=== PATIENT | female | born 1945 | race Caucasian/White ===

== ENCOUNTER 2016-03-31 12:40 | Emergency (ER) | payer MEDICARE ==
--- NOTE | 2016-03-31 14:24 | ERRECORD ---
[facility] EMERGENCY RECORD PAST MEDICAL HISTORY (13:34 SEC) MEDICAL HISTORY: Past medical history includes neurological disease, STROKE 2015, Past medical history includes gastrointestinal disease, gastroesophageal reflux disease, Past medical history includes history of hypertension, which has been treated. FEMALE SURGICAL HISTORY: Surgical history of hysterectomy, Surgical history of tonsillectomy. PSYCHIATRIC HISTORY: No previous psychiatric history. SOCIAL HISTORY: Patient denies alcohol use, Patient denies drug use, Patient has no smoking history, Patient denies alcohol use, Patient denies drug use, Patient has no smoking history, Patient has no smoking history, Patient drinks socially, twice a month, Patient denies drug use. KNOWN ALLERGIES No Known Drug Allergies CURRENT MEDICATIONS CeleXA: TABLET : Strength - 10 mg : ORAL Patient Dose: 20 mg once a day. (13:35 SEC) amLODIPine: TABLET : Strength - 10 mg : ORAL Patient Dose: once a day. (13:36 SEC) aspirin: TABLET : Strength - 81 mg : ORAL Patient Dose: once a day. (13:36 SEC) simvastatin: TABLET : Strength - 20 mg : ORAL Patient Dose: once a day. (13:36 SEC) Co Q-10: CAPSULE : Strength - 100 mg : ORAL Patient Dose: once a day. (13:37 SEC) Xanax: TABLET : Strength - 0.25 mg : ORAL Patient Dose: once a day (at bedtime). (13:37 SEC) Zanaflex: CAPSULE : Strength - 2 mg : ORAL Patient Dose: once a day. (13:37 SEC) VITAL SIGNS VITAL SIGNS: BP: 142/75, Pulse: 72, Resp: 18, O2 sat: 97 on Room Air, Time: 03/31/2016 12:51. (12:51 SEC) Temp: 97.5 (Oral), Pain: 5, Time: 03/31/2016 12:55. (12:55 SEC) BP: 137/82, Pulse: 83, Resp: 18, O2 sat: 98 on Room Air, Time: 03/31/2016 13:34. (13:34 SEC) RADIOLOGYINTERPRETATION (14:03 MBRI) BACK: Lumbar spine films negative, no fracture, no subluxation, &a-1R&a+25V*p+0X*[id number]*c202B*c15G*c2P*p-0X&a-25V&a+1R Name: Jane Solomon : 1945 F70 MedRec: [id number] AcctNum: [id number] Prepared: Rosa Mar 31, 2016 14:19 by Interface Page 1 of 2 pMD [facility] EMERGENCY RECORD no spondylolisthesis, convex left lumbar scoliosis. No frx or spondylolisthesis noted. MAJOR GIFTS DIRECTOR: Preliminary review of x-rays by, ED Physician. PROBLEM LIST No recorded problems DIAGNOSIS (14:04 MBRI) FINAL: PRIMARY: LOW BACK PAIN. DISPOSITION PATIENT: Disposition Type: Discharge, Disposition: *Discharge Home, Condition: Fair. (14:04 MBRI) Patient left the department. (14:14 LGIB) Pat: LGIB=LANG Sanchez, Sil MBRI=DO Jimenez Matthew SEC=LANG Garrett, Mariluz &a-1R&a+25V*p+0X*[id number]*c202B*c15G*c2P*p-0X&a-25V&a+1R Name: Jane Solomon : 1945 F70 MedRec: [id number] AcctNum: [id number] Prepared: Rosa Mar 31, 2016 14:19 by Interface Page 2 of 2 pMD MTDD
--- NOTE | 2016-03-31 14:32 | PICIS ---
[facility] EMERGENCY RECORD TRIAGE (FriMar 31, 2016 12:52 KMOR) TRIAGE NOTES: Fell last Friday on to back, no LOC, still having pain. (FriMar 31, 2016 12:52 KMOR) PATIENT: NAME: Jane Solomon, AGE: 70, GENDER: female, : Fri1945, TIME OF GREET: FriMar 31, 2016 12:41, PREFERRED LANGUAGE: Chinese, ETHNICITY: Not or , ECODE BILLING MAP: [facility], SSN: [id number], Zip Code: [address], KG WEIGHT: 61.23, PHONE: , , , PERSON ID: [id number], PAYMENT: [employer], PCP: DO ROSAS JOHN SCOTT. (FriMar 31, 2016 12:52 KMOR) COMPLAINT: FALL. (FriMar 31, 2016 12:52 KMOR) ADMISSION: URGENCY: 4 Non Urgent, ADMISSION SOURCE: Home, TRANSPORT: CAR, BED: ER -03. (FriMar 31, 2016 12:52 KMOR) ASSESSMENT: Assessment: PT REPORTS BEING OFF BALANCE, TRIP & FALL 3 DAYS AGO; HERE FOR LOWER BACK PAIN, Symptoms began 3 DAYS. (13:34 SEC) PAIN: Patient complains of pain described as, aching, on a scale 0-10 patient rates pain as 5, Location LOWER BACK. (13:34 SEC) IMMUNIZATIONS: Flu vaccine up to date, Tetanus not up to date, Pneumococcal vaccine up to date. (13:34 SEC) SIRS SCORING: Heart Rate 55-109 (0), Temp range 96.8-101.1 (0), respiratory rate 12-24 (0), Mental Status altered: no (0), Infection or Suspected Infection: No. (13:34 SEC) TRIAGE SCREENING: Patient denies suicidal ideation, Patient denies presence of domestic violence. (13:34 SEC) PROVIDERS: TRIAGE NURSE: Jailyn Quintero RN. (FriMar 31, 2016 12:52 KMOR) PREVIOUS VISIT ALLERGIES: No Known Drug Allergies. (FriMar 31, 2016 12:52 KMOR) No Known Drug Allergies. (13:34 SEC) KNOWN ALLERGIES No Known Drug Allergies CURRENT MEDICATIONS CeleXA: TABLET : Strength - 10 mg : ORAL Patient Dose: 20 mg once a day. (13:35 SEC) amLODIPine: TABLET : Strength - 10 mg : ORAL Patient Dose: once a day. (13:36 SEC) aspirin: TABLET : Strength - 81 mg : ORAL Patient Dose: once a day. (13:36 SEC) simvastatin: TABLET : Strength - 20 mg : ORAL Patient Dose: once a day. (13:36 SEC) Co Q-10: &a-1R&a+25V*p+0X*i3105E*c202B*c15G*c2P*p-0X&a-25V&a+1R Name: Jane Solomon : 1945 F70 MedRec: [id number] AcctNum: [id number] Prepared: Rosa Mar 31, 2016 14:23 by Interface Page 1 of 4 pMD [facility] EMERGENCY RECORD CAPSULE : Strength - 100 mg : ORAL Patient Dose: once a day. (13:37 SEC) Xanax: TABLET : Strength - 0.25 mg : ORAL Patient Dose: once a day (at bedtime). (13:37 SEC) Zanaflex: CAPSULE : Strength - 2 mg : ORAL Patient Dose: once a day. (13:37 SEC) VITAL SIGNS VITAL SIGNS: BP: 142/75, Pulse: 72, Resp: 18, O2 sat: 97 on Room Air, Time: 03/31/2016 12:51. (12:51 SEC) Temp: 97.5 (Oral), Pain: 5, Time: 03/31/2016 12:55. (12:55 SEC) BP: 137/82, Pulse: 83, Resp: 18, O2 sat: 98 on Room Air, Time: 03/31/2016 13:34. (13:34 SEC) NURSING ASSESSMENT: BACK (13:38 SEC) CONSTITUTIONAL: Patient arrives ambulatory, Gait steady, History obtained from patient, Patient appears comfortable, Patient cooperative, Patient alert, Oriented to person, place and time, Skin warm, Skin dry, Skin normal in color, Mucous membranes pink, Patient complains of FALL 3 DAYS AGO; LOWER BACK PAIN. PAIN: aching pain, to the lower back, on a scale 0-10 patient rates pain as 5. BACK: Back assessment findings include tenderness to, no paresthesias to extremities, no weakness to extremities, Notes: NO NEW INCONTINENCE. NECK: no pain with range of motion. SAFETY: Side rails up, Cart/Stretcher in lowest position, Family at bedside, Call light within reach, Hospital ID band on. NURSING PROCEDURE: DISCHARGE NOTE (14:08 KMOR) DISCHARGE: Patient discharged to home, ambulating without assistance, family driving, accompanied by //partner, Summary of Care printed/ provided, Transition record given to patient, Discharge instructions given to patient, Simple or moderate discharge teaching performed, by LANG Glaser, Discharge instructions and follow up reviewed with patient. Pt ambulatory to discharge desk., Above person(s) verbalized understanding of discharge instructions and follow-up care. BELONGINGS: Belongings remain with patient, Valuables remain with patient. ORDER DETAILS Order Name: XR Lumbar Spine 2 Or 3 View, Status: Active, Time: 13:32 03/31/2016, User: ALLY, - Ordered for: DO Jimenez Matthew, - Entered by: DO Jimenez Matthew - Rosa Mar 31, 2016 13:32, - Quantity: 1. &a-1R&a+25V*p+0X*b2285V*c202B*c15G*c2P*p-0X&a-25V&a+1R Name: Jane Solomon : 1945 F70 MedRec: [id number] AcctNum: [id number] Prepared: Rosa Mar 31, 2016 14:23 by Interface Page 2 of 4 pMD [facility] EMERGENCY RECORD PAST MEDICAL HISTORY (13:34 SEC) MEDICAL HISTORY: Past medical history includes neurological disease, STROKE 2014, Past medical history includes gastrointestinal disease, gastroesophageal reflux disease, Past medical history includes history of hypertension, which has been treated. FEMALE SURGICAL HISTORY: Surgical history of hysterectomy, Surgical history of tonsillectomy. PSYCHIATRIC HISTORY: No previous psychiatric history. SOCIAL HISTORY: Patient denies alcohol use, Patient denies drug use, Patient has no smoking history, Patient denies alcohol use, Patient denies drug use, Patient has no smoking history, Patient has no smoking history, Patient drinks socially, twice a month, Patient denies drug use. EVENTS TRANSFER: Triage to Emergency Emergency Room -03. (Rosa Mar 31, 2016 12:52 KMOR) Removed from Emergency Emergency Room -03. (14:14 LGIB) RADIOLOGYINTERPRETATION (14:03 MBRI) BACK: Lumbar spine films negative, no fracture, no subluxation, no spondylolisthesis, convex left lumbar scoliosis. No frx or spondylolisthesis noted. MERGERS AND ACQUISITIONS CONSULTANT: Preliminary review of x-rays by, ED Physician. O2SAT INTERPRETATION (14:03 MBRI) O2SAT: Oxygen saturation interpretation: Normal. PROBLEM LIST No recorded problems DIAGNOSIS (14:04 MBRI) FINAL: PRIMARY: LOW BACK PAIN. DISPOSITION PATIENT: Disposition Type: Discharge, Disposition: *Discharge Home, Condition: Fair. (14:04 MBRI) Patient left the department. (14:14 LGIB) INSTRUCTION (14:05 MBRI) DISCHARGE: BACK PAIN (ACUTE OR CHRONIC). FOLLOWUP: DO ROSAS JOHN SCOTT, [facility], [address] [place] [address], , Follow up with Primary Care Physician in 7-10 days. SPECIAL: Please return for any further issues or concerns, we would be happy to see you. We hope you feel better soon. Follow-up with your primary physician as needed &a-1R&a+25V*p+0X*i8937O*c202B*c15G*c2P*p-0X&a-25V&a+1R Name: Jane Solomon : 1945 F70 MedRec: [id number] AcctNum: [id number] Prepared: Rosa Mar 31, 2016 14:23 by Interface Page 3 of 4 pMD [facility] EMERGENCY RECORD Tylenol or Advil for Pain. IMAGING (14:17 KMOR) *DISCHARGE INSTRUCTIONS RECEIPT: Image captured from scanner. *SUPPLY CHARGE SHEET: Image captured from scanner. ADMIN (14:18 KMOR) DIGITAL SIGNATURE: LANG Quintero Krista. Pat: KMOR=LANG Quintero Krista LGIB=LANG Sanchez Lauren MBRI=DO Jimenez Matthew SEC=LANG Garrett Sarah &a-1R&a+25V*p+0X*h9646E*c202B*c15G*c2P*p-0X&a-25V&a+1R Name: Jane Solomon : 1945 F70 MedRec: [id number] AcctNum: [id number] Prepared: Rosa Mar 31, 2016 14:23 by Interface Page 4 of 4 pMD [facility] MEDICATION RECONCILIATION You were seen in the Emergency Department on: Rosa Mar 31, 2016 KNOWN ALLERGIES No Known Drug Allergies HOME MEDICATIONS CONTINUE PRESCRIBED amLODIPine : TABLET : Strength - 10 mg : ORAL Continue as prescribed Patient had been taking: once a day. aspirin : TABLET : Strength - 81 mg : ORAL Continue as prescribed Patient had been taking: once a day. CeleXA : TABLET : Strength - 10 mg : ORAL Continue as prescribed Patient had been takin mg once a day. Co Q-10 : CAPSULE : Strength - 100 mg : ORAL Continue as prescribed Patient had been taking: once a day. simvastatin : TABLET : Strength - 20 mg : ORAL Continue as prescribed Patient had been taking: once a day. Xanax : TABLET : Strength - 0.25 mg : ORAL Continue as prescribed Patient had been taking: once a day (at bedtime). Zanaflex : CAPSULE : Strength - 2 mg : ORAL Continue as prescribed Patient had been taking: once a day. Notes from the emergency department Reviewed with patient &a-1R&a+25V*p+0X*b1871Q*c202B*c15G*c2P*p-0X&a-25V&a+1R Name: Jane Solomon : 1945 F70 MedRec: [id number] AcctNum: [id number] Prepared: Rosa Mar 31, 2016 14:23 by Interface pMD MTDJessica
--- NOTE | 2016-03-31 19:09 | RAD ---
LUMBAR SPINE THREE VIEWS: Date: 03-31-16 FINDINGS: No acute fracture or dislocation was seen. There is some scalloping of the superior endplate of T12 that may be in the process of early collapse. Disc space narrowing with endplate sclerosis is seen at L1-2. There is minimal anterolisthesis of L3 on L4 which appears to be due to facet arthritis. There is probably minimal anterolisthesis of L5 on S1 as well, though less definite. The SI joints appear normal. IMPRESSION: 1. Scoliosis. 2. Degenerative changes throughout, particularly at the L1-2 disc space. 3. Slight scalloping of the superior endplate of T12. This could represent the beginnings of an ea rly compression, though it is likely to not be acute. POS: HOME
== END 2016-03-31 14:08 | disposition home or self-care (01) ==
LOC: BURERS 12:40
DX: M54.5 Low back pain (principal); K21.9 Gastro-esophageal reflux disease without esophagitis; I10 Essential (primary) hypertension; Z90.710 Acquired absence of both cervix and uterus; Z90.49 Acquired absence of other specified parts of digestive tract
CPT/HCPCS: 72100

== ENCOUNTER 2016-06-11 18:54 | Outpatient (CLI) | payer MEDICARE ==
[2016-06-12 17:59] LABS: Free T3 2.71 pg/mL (1.71-3.71)
== END 2016-06-11 18:55 | disposition home or self-care (01) ==
LOC: BURLAB 18:54
PROVIDERS: ATTEND Family Medicine
DX: E03.8 Other specified hypothyroidism (principal)
CPT/HCPCS: 36415; 84439; 84443; 84481

== ENCOUNTER 2018-11-17 07:56 | Emergency (ER) | payer MEDICARE ==
[2018-11-17] MEDS ORDERED: HYDROcodone/Acetaminophen 5/325 mg Tablet ONE (08:46)
--- NOTE | 2018-11-17 18:06 | RAD ---
LEFT HIP TWO VIEWS: 11/17/18 No fracture or dislocation was seen. The joint space is normal in width and the articular surfaces ar e smooth. The adjacent pubic ring appears intact. IMPRESSION: No acute findings. POS: HOME
--- NOTE | 2018-11-17 18:08 | RAD ---
PELVIS ONE VIEW: 11/17/18 The bony pelvis appears intact with no signs of fracture. The hip joints are symmetrical. The symphys is shows no widening or offset. Both pubic rings appear intact and the SI joints are symmetrical. A metallic density is seen over the right iliac wing that is probably in the soft tissues. An oblong st ructure seen overlying the rectum may be medication in the gut. IMPRESSION: No acute traumatic finding. POS: HOME
== END 2018-11-17 08:58 | disposition home or self-care (01) ==
LOC: BURERS 07:56
DX: S39.013A Strain of muscle, fascia and tendon of pelvis, initial encounter (principal); S70.02XA Contusion of left hip, initial encounter; I10 Essential (primary) hypertension; K21.9 Gastro-esophageal reflux disease without esophagitis; Z79.899 Other long term (current) drug therapy; W01.0XXA Fall on same level from slipping, tripping and stumbling without subsequent striking against object, initial encounter
CPT/HCPCS: 72170